=== PATIENT | female | born 1945 | race Caucasian/White ===

== ENCOUNTER 2017-06-05 12:19 | Day surgery (SDC) | END 2017-06-05 19:28 | disposition home or self-care (01) ==

== ENCOUNTER 2018-12-28 11:49 | Day surgery (SDC) | payer MEDICARE, BC ==
[~2018-12-28] VITALS: Ht 143.5 cm; Wt 47.5 kg
[~2018-12-28 11:49] MED LIST: ASPI-535 PO; CEPH500C PO; CRES5 PO; FAMO20TA18 PO; FER325 PO; IBUP-1542 PO; LEVO50TA7 PO; LOSA25TA2 PO; MULTIVITAMINS; PIOG45TA64 PO; SITA100T11 PO
[2018-12-28 13:31] VITALS: BP 142/62; PULSE 75; RESP 15
[2018-12-28] MEDS ORDERED: GLYCOPYRROLATE 0.4 MG INJ ONE (15:50)
[2018-12-28] MEDS ORDERED: LIDOCAINE 100 MG SYRINGE ONE (15:55)
[2018-12-28] MEDS ORDERED: PROPOFOL 40 ML ONE (15:55)
[2018-12-28 16:50] VITALS: BP 134/63; RESP 18
== END 2018-12-28 21:51 | disposition home or self-care (01) ==
LOC: GIL 11:49
PROVIDERS: ATTEND Internal Medicine Gastroenterology
DX: K64.8 Other hemorrhoids (principal); K57.30 Diverticulosis of large intestine without perforation or abscess without bleeding; C18.9 Malignant neoplasm of colon, unspecified; E11.9 Type 2 diabetes mellitus without complications; E03.9 Hypothyroidism, unspecified; E78.5 Hyperlipidemia, unspecified; I10 Essential (primary) hypertension; Z79.82 Long term (current) use of aspirin
CPT/HCPCS: 45380; 82962; 88305; J2001